=== PATIENT | female | born 1935 | race Caucasian/White ===

== ENCOUNTER 2018-03-10 16:23 | Inpatient (IN) | payer OTHER ==
[~2018-03-10] VITALS: Ht 157.5 cm; Wt 47.6 kg
[~2018-03-10 16:23] MED LIST: LEVO75TA7 PO; LISI10TA5 PO; ROSU10TA PO; WARF4TAB2 PO
[2018-03-10 16:40] VITALS: BP_SYST 146
[2018-03-10 17:49] LABS: HEMATOCRIT 30.9 % (36-48); HEMOGLOBIN 10.3 g/dL (12.0-16.0); MEAN CORPUSCULAR HEMOGLOBIN 32 pg (27-31); MEAN CORPUSCULAR HGB CONC 33 % (32-36); MEAN CORPUSCULAR VOLUME 96 fL (79.0-98.0); PLATELET COUNT (AUTO) 407 K/uL (130-430); RED BLOOD CELL COUNT(AUTO) 3.21 MIL/uL (4.2-6.2); RED CELL DISTRIBUTION WIDTH 13.1 % (9.0-15.0); WHITE BLOOD COUNT (AUTO) 12.8 K/uL (4.8-10.8)
[2018-03-10 17:59] LABS: ANION GAP 7 (5-15); CALCIUM 8.9 mg/dL (8.4-11.0); CHLORIDE 107 mmol/L (98-107); CREATININE 1.22 mg/dL (0.55-1.30); GLUCOSE 113 mg/dL (70-99); POTASSIUM 4.5 mmol/L (3.5-5.1); SODIUM SERUM 139 mmol/L (136-145); UREA NITROGEN, BLOOD 26 mg/dL (8-21)
[2018-03-10 18:03] LABS: ALANINE AMINOTRANSFERASE 24 U/L (12-78); ALBUMIN 3.1 g/dL (3.4-4.8); ASPARTATE AMINOTRANSFERASE 20 U/L (10-37); TOTAL BILIRUBIN 0.2 mg/dL (0.0-1.0)
[2018-03-10 18:25] LABS: BAND % (MANUAL) 1 % (0-6); BASOPHILS % (MANUAL) 0 % (0-2); EOSINOPHILS % (MANUAL) 6 % (0-7); LYMPHOCYTES % (MANUAL) 34 % (20-46); MONOCYTES % (MANUAL) 5 % (0-11)
[2018-03-10] MEDS ORDERED: IPRA3AMP9 INH (19:27)
[2018-03-10] MEDS ORDERED: GUAI100S14 PO (19:29)
[2018-03-10] MEDS ORDERED: BACL10TA PO (19:32)
[2018-03-10] MEDS ORDERED: WARF5TAB2 PO (19:34)
[2018-03-10] MEDS ORDERED: WARF2TAB2 PO (19:37)
[2018-03-10 19:44] LABS: BILIRUBIN,URINE NEGATIVE (NEGATIVE); BLOOD, URINE 3+ (NEGATIVE); CLARITY/URINE CLOUDY (CLEAR); COLOR,URINE YELLOW (YELLOW); GLUCOSE,URINE NEGATIVE (NEGATIVE); KETONES,URINE NEGATIVE (NEGATIVE); LEUKOCYTE ESTERASE ,URINE 2+ (NEGATIVE); NITRITE, URINE NEGATIVE (NEGATIVE); PH,URINE 5.5 (5.0-8.0); PROTEIN URINE 2+ (NEGATIVE); UROBILINOGEN,URINE 0.2 (0.2-1.0)
[2018-03-10 19:49] LABS: BACTERIA,URINE MODERATE /HPF (None Seen); WBC,URINE 20-50 /HPF (0-3)
[2018-03-10] MEDS ORDERED: TRAM50TA92 PO (20:09)
[2018-03-10] MEDS ORDERED: ACET-2165 PO (20:13)
[2018-03-10] MEDS ORDERED: LEVOFLOXACIN 500 MG/D5W 100 ML IV ONE (20:15)
[2018-03-10] MEDS ORDERED: MULT-300 PO (20:15)
[2018-03-10] MEDS ORDERED: FAMO20TA8 PO (20:16)
[2018-03-10] MEDS ORDERED: MAGN400O4 PO (20:17)
[2018-03-10] MEDS ORDERED: SENN8.6T19 PO (20:17)
[2018-03-10] MEDS ORDERED: DULR10 RC (20:18)
[2018-03-10] MEDS ORDERED: NA P118E RC (20:19)
[2018-03-10] MEDS ORDERED: CAT.1 PO (20:20)
[2018-03-10] MEDS ORDERED: DOCU-144 PO (20:23)
[2018-03-10] MEDS ORDERED: LIP10 PO (20:24)
[2018-03-10] MEDS ORDERED: traMADol HCL HCL 50 MG TABLET (ULTRAM) PO PRN (20:45)
[2018-03-10] MEDS ORDERED: cloNIDine HCL 0.1 MG TABLET PO PRN (20:45)
[2018-03-10] MEDS ORDERED: BACLOFEN 10 MG TABLET PO PRN (20:45)
[2018-03-10] MEDS ORDERED: NA PHOS,M-B/NA PHOS,DI-BA 118 ML (FLEET ENEMA) RC PRN (20:45)
[2018-03-10] MEDS ORDERED: ACETAMINOPHEN 325 MG TABLET PO PRN ×2 (20:45)
[2018-03-10] MEDS ORDERED: BISACODYL 10 MG/SUPPOSITORY RC PRN (20:45)
[2018-03-10] MEDS ORDERED: IPRATROPIUM/ALBUTEROL SULFATE 3 ML AMPUL.NEB INH PRN (20:45)
[2018-03-10] MEDS ORDERED: MILK OF MAGNESIA 30 ML UDC PO PRN (20:45)
[2018-03-10] MEDS ORDERED: DOCUSATE SODIUM 100 MG CAPSULE PO PRN (20:45)
[2018-03-10] MEDS ORDERED: guaiFENesin 200 MG/10 ML UDC PO PRN (20:45)
[2018-03-10 21:00] VITALS: BP_SYST 158
[2018-03-10 22:27] VITALS: BP_SYST 158
[2018-03-11] VITALS: BP_SYST 136
[2018-03-11 07:18] LABS: BASOPHILS # (AUTO) 0.1 K/uL (0.0-0.2); BASOPHILS % (AUTO) 0.8 % (0.0-2.0); EOSINOPHILS # (AUTO) 0.4 K/uL (0.0-0.4); EOSINOPHILS % (AUTO) 3.6 % (0.0-4.0); HEMOGLOBIN 9.6 g/dL (12.0-16.0); LYMPHOCYTES % (AUTO) 28.1 % (20.5-51.5); MEAN CORPUSCULAR HEMOGLOBIN 31 pg (27-31); MEAN CORPUSCULAR HGB CONC 32 % (32-36); MEAN CORPUSCULAR VOLUME 96 fL (79.0-98.0); MONOCYTES # (AUTO) 0.9 K/uL (0.0-1.0); MONOCYTES % (AUTO) 7.9 % (1.7-9.3); NEUTROPHILS # (AUTO) 6.4 K/uL (1.8-7.7); NEUTROPHILS % (AUTO) 59.6 % (40.0-70.0); PLATELET COUNT (AUTO) 366 K/uL (130-430); RED BLOOD CELL COUNT(AUTO) 3.11 MIL/uL (4.2-6.2); RED CELL DISTRIBUTION WIDTH 13.4 % (9.0-15.0); WHITE BLOOD COUNT (AUTO) 10.8 K/uL (4.8-10.8)
[2018-03-11 07:33] LABS: PROTHROMBIN TIME 20.2 SECS (9.5-12.5)
[2018-03-11 08:20] VITALS: BP_SYST 148
[2018-03-11] MEDS: MULTIVITS,CA,MINERALS/IRON/FA 1 TABLET PO SCH (08:24)
[2018-03-11] MEDS: LISINOPRIL 10 MG TABLET (PRINIVIL) PO SCH (08:24)
[2018-03-11] MEDS: ATORVASTATIN 10 MG TABLET PO SCH (08:24)
[2018-03-11] MEDS: FAMOTIDINE 20 MG TABLET PO SCH (08:24)
[2018-03-11 08:40] LABS: ALANINE AMINOTRANSFERASE 21 U/L (12-78); ALBUMIN 2.9 g/dL (3.4-4.8); ANION GAP 8 (5-15); ASPARTATE AMINOTRANSFERASE 17 U/L (10-37); CHLORIDE 108 mmol/L (98-107); GLUCOSE 77 mg/dL (70-99); POTASSIUM 5.2 mmol/L (3.5-5.1); SODIUM SERUM 142 mmol/L (136-145); THYROID STIMULATING HORMONE 1.98 uIu/mL (0.34-4.82); TOTAL BILIRUBIN 0.4 mg/dL (0.0-1.0); UREA NITROGEN, BLOOD 22 mg/dL (8-21)
[2018-03-11] MEDS ORDERED: LEVOTHYROXINE SODIUM 0.075 MG TABLET PO SCH (09:00)
[2018-03-11 09:23] LABS: CALCIUM 8.7 mg/dL (8.4-11.0); CREATININE 1.31 mg/dL (0.55-1.30)
[2018-03-11 12:38] VITALS: BP_SYST 132
[2018-03-11] MEDS: 0.45% NACL 1,000 ML IV SCH (15:00)
[2018-03-11 16:46] VITALS: BP_SYST 131
[2018-03-11] MEDS ORDERED: WARFARIN SODIUM 5 MG TABLET PO SCH (18:00)
[2018-03-11] MEDS ORDERED: WARFARIN SODIUM 3 MG TABLET PO ONE (18:00)
[2018-03-11] MEDS ORDERED: WARFARIN SODIUM 4 MG TABLET PO ONE (18:00)
[2018-03-11 20:00] VITALS: BP_SYST 148
[2018-03-11] MEDS: SENNOSIDES 8.6 MG TABLET PO SCH (20:20)
[2018-03-11] MEDS ORDERED: COMMUNICATION ORDER XX ONE (22:15)
[2018-03-12 00:42] VITALS: BP_SYST 123
[2018-03-12] MEDS: 0.45% NACL 1,000 ML IV SCH ×2 (02:30→14:33)
[2018-03-12] MEDS: LEVOTHYROXINE SODIUM 0.075 MG TABLET PO SCH (06:10)
[2018-03-12 06:54] LABS: INR 1.6 (0.8-1.2); PROTHROMBIN TIME 16.7 SECS (9.5-12.5)
[2018-03-12 07:02] LABS: ALANINE AMINOTRANSFERASE 19 U/L (12-78); ALBUMIN 2.6 g/dL (3.4-4.8); ANION GAP 6 (5-15); ASPARTATE AMINOTRANSFERASE 17 U/L (10-37); CALCIUM 8.7 mg/dL (8.4-11.0); CHLORIDE 104 mmol/L (98-107); CREATININE 1.22 mg/dL (0.55-1.30); GLUCOSE 81 mg/dL (70-99); POTASSIUM 4.5 mmol/L (3.5-5.1); SODIUM SERUM 136 mmol/L (136-145); TOTAL BILIRUBIN 0.4 mg/dL (0.0-1.0); UREA NITROGEN, BLOOD 23 mg/dL (8-21)
[2018-03-12 07:08] LABS: BASOPHILS % (AUTO) 0.3 % (0.0-2.0); EOSINOPHILS # (AUTO) 0.7 K/uL (0.0-0.4); EOSINOPHILS % (AUTO) 7.4 % (0.0-4.0); HEMATOCRIT 30.5 % (36-48); HEMOGLOBIN 9.7 g/dL (12.0-16.0); LYMPHOCYTES # (AUTO) 3.4 K/uL (1.0-5.5); LYMPHOCYTES % (AUTO) 34.5 % (20.5-51.5); MEAN CORPUSCULAR HEMOGLOBIN 31 pg (27-31); MEAN CORPUSCULAR HGB CONC 32 % (32-36); MEAN CORPUSCULAR VOLUME 97 fL (79.0-98.0); MONOCYTES # (AUTO) 0.9 K/uL (0.0-1.0); MONOCYTES % (AUTO) 8.9 % (1.7-9.3); NEUTROPHILS % (AUTO) 48.9 % (40.0-70.0); PLATELET COUNT (AUTO) 352 K/uL (130-430); RED BLOOD CELL COUNT(AUTO) 3.16 MIL/uL (4.2-6.2); RED CELL DISTRIBUTION WIDTH 13.3 % (9.0-15.0)
[2018-03-12 08:23] VITALS: BP_SYST 114
[2018-03-12] MEDS: MULTIVITS,CA,MINERALS/IRON/FA 1 TABLET PO SCH (08:59)
[2018-03-12] MEDS: FAMOTIDINE 20 MG TABLET PO SCH (08:59)
[2018-03-12] MEDS: ATORVASTATIN 10 MG TABLET PO SCH (08:59)
[2018-03-12] MEDS: LISINOPRIL 10 MG TABLET (PRINIVIL) PO SCH (09:00)
[2018-03-12] MEDS: LEVOFLOXACIN 250 MG/D5W 50 ML IV SCH (10:33)
[2018-03-12 11:26] VITALS: BP_SYST 124
[2018-03-12] MEDS ORDERED: ONDANSETRON HCL 4 MG/2 ML VIAL IVP PRN (15:45)
[2018-03-12 15:50] VITALS: BP_SYST 110
[2018-03-12] MEDS ORDERED: guaiFENesin ER 600 MG TAB PO ONE (16:15)
[2018-03-12] MEDS ORDERED: CELECOXIB 100 MG CAPSULE PO ONE (16:30)
[2018-03-12 16:54] LABS: TOTAL IRON BIND. CAPACITY 169 ug/dL (250-450)
[2018-03-12] MEDS: WARFARIN SODIUM 7.5 MG TABLET PO SCH (18:05)
[2018-03-12 20:00] VITALS: BP_SYST 143
[2018-03-12] MEDS: IPRATROPIUM/ALBUTEROL SULFATE 3 ML AMPUL.NEB INH SCH (20:00)
[2018-03-12] MEDS: guaiFENesin ER 600 MG TAB PO SCH (21:07)
[2018-03-12] MEDS: SENNOSIDES 8.6 MG TABLET PO SCH (21:07)
[2018-03-13 00:40] VITALS: BP_SYST 124
[2018-03-13] MEDS: IPRATROPIUM/ALBUTEROL SULFATE 3 ML AMPUL.NEB INH SCH ×4 (01:30→19:55)
[2018-03-13] MEDS: 0.45% NACL 1,000 ML IV SCH ×2 (03:17→18:15)
[2018-03-13] MEDS: LEVOTHYROXINE SODIUM 0.075 MG TABLET PO SCH (06:26)
[2018-03-13 08:45] VITALS: BP_SYST 129
[2018-03-13] MEDS: ATORVASTATIN 10 MG TABLET PO SCH (09:35)
[2018-03-13] MEDS: CELECOXIB 100 MG CAPSULE PO SCH (09:35)
[2018-03-13] MEDS: MULTIVITS,CA,MINERALS/IRON/FA 1 TABLET PO SCH (09:36)
[2018-03-13] MEDS: FAMOTIDINE 20 MG TABLET PO SCH (09:36)
[2018-03-13] MEDS: LISINOPRIL 10 MG TABLET (PRINIVIL) PO SCH (09:36)
[2018-03-13] MEDS: guaiFENesin ER 600 MG TAB PO SCH ×2 (09:37→20:12)
[2018-03-13] MEDS: LEVOFLOXACIN 250 MG/D5W 50 ML IV SCH (09:37)
[2018-03-13 09:46] LABS: INR 1.6 (0.8-1.2); PROTHROMBIN TIME 16.1 SECS (9.5-12.5)
[2018-03-13 10:39] VITALS: BP_SYST 129
[2018-03-13] MEDS ORDERED: DOXYCYCLINE HYCLATE 100 MG CAPSULE PO ONE (12:00)
[2018-03-13 12:29] VITALS: BP_SYST 121
[2018-03-13 16:22] VITALS: BP_SYST 139
[2018-03-13] MEDS: WARFARIN SODIUM 7.5 MG TABLET PO SCH (18:17)
[2018-03-13 19:05] VITALS: BP_SYST 147
[2018-03-13] MEDS: SENNOSIDES 8.6 MG TABLET PO SCH (20:12)
[2018-03-14 00:15] VITALS: BP_SYST 138
[2018-03-14] MEDS: IPRATROPIUM/ALBUTEROL SULFATE 3 ML AMPUL.NEB INH SCH ×4 (01:00→19:56)
[2018-03-14] MEDS: 0.45% NACL 1,000 ML IV SCH ×2 (06:04→17:16)
[2018-03-14] MEDS: LEVOTHYROXINE SODIUM 0.075 MG TABLET PO SCH (06:04)
[2018-03-14 08:00] VITALS: BP_SYST 136
[2018-03-14] MEDS: FAMOTIDINE 20 MG TABLET PO SCH (09:01)
[2018-03-14] MEDS: guaiFENesin ER 600 MG TAB PO SCH ×2 (09:01→21:45)
[2018-03-14] MEDS: ATORVASTATIN 10 MG TABLET PO SCH (09:01)
[2018-03-14] MEDS: MULTIVITS,CA,MINERALS/IRON/FA 1 TABLET PO SCH (09:02)
[2018-03-14] MEDS: LEVOFLOXACIN 250 MG/D5W 50 ML IV SCH (09:02)
[2018-03-14] MEDS: CELECOXIB 100 MG CAPSULE PO SCH (09:02)
[2018-03-14] MEDS: LISINOPRIL 10 MG TABLET (PRINIVIL) PO SCH (09:02)
[2018-03-14] MEDS: DOXYCYCLINE HYCLATE 100 MG CAPSULE PO SCH (09:02)
[2018-03-14 09:52] LABS: INR 1.9 (0.8-1.2); PROTHROMBIN TIME 19.3 SECS (9.5-12.5)
[2018-03-14 12:00] VITALS: BP_SYST 152
[2018-03-14 13:46] LABS: ANION GAP 6 (5-15); CALCIUM 8.2 mg/dL (8.4-11.0); CHLORIDE 107 mmol/L (98-107); CREATININE 1.18 mg/dL (0.55-1.30); GLUCOSE 109 mg/dL (70-99); SODIUM SERUM 137 mmol/L (136-145); UREA NITROGEN, BLOOD 22 mg/dL (8-21)
[2018-03-14 13:51] LABS: ALANINE AMINOTRANSFERASE 19 U/L (12-78); ALBUMIN 2.8 g/dL (3.4-4.8); ASPARTATE AMINOTRANSFERASE 18 U/L (10-37); TOTAL BILIRUBIN 0.2 mg/dL (0.0-1.0)
[2018-03-14] MEDS ORDERED: VANCOMYCIN HCL 750 MG/NS 250 ML IV ONE (14:00)
[2018-03-14 15:09] VITALS: BP_SYST 143
[2018-03-14] MEDS: WARFARIN SODIUM 7.5 MG TABLET PO SCH (17:21)
[2018-03-14 20:00] VITALS: BP_SYST 157
[2018-03-14] MEDS: SENNOSIDES 8.6 MG TABLET PO SCH (21:45)
[2018-03-15] VITALS: BP_SYST 141
[2018-03-15] MEDS: IPRATROPIUM/ALBUTEROL SULFATE 3 ML AMPUL.NEB INH SCH ×4 (00:55→19:42)
[2018-03-15] MEDS: LEVOTHYROXINE SODIUM 0.075 MG TABLET PO SCH (06:15)
[2018-03-15] MEDS: 0.45% NACL 1,000 ML IV SCH ×2 (06:15→18:29)
[2018-03-15 07:08] LABS: ALANINE AMINOTRANSFERASE 15 U/L (12-78); ALBUMIN 2.5 g/dL (3.4-4.8); ANION GAP 5 (5-15); ASPARTATE AMINOTRANSFERASE 14 U/L (10-37); CALCIUM 8.3 mg/dL (8.4-11.0); CHLORIDE 109 mmol/L (98-107); CREATININE 1.13 mg/dL (0.55-1.30); GLUCOSE 82 mg/dL (70-99); POTASSIUM 4.3 mmol/L (3.5-5.1); SODIUM SERUM 137 mmol/L (136-145); TOTAL BILIRUBIN 0.3 mg/dL (0.0-1.0); UREA NITROGEN, BLOOD 19 mg/dL (8-21)
[2018-03-15 07:27] LABS: INR 2.1 (0.8-1.2); PROTHROMBIN TIME 21.7 SECS (9.5-12.5)
[2018-03-15] MEDS: CELECOXIB 100 MG CAPSULE PO SCH (08:36)
[2018-03-15] MEDS: LISINOPRIL 10 MG TABLET (PRINIVIL) PO SCH (08:37)
[2018-03-15] MEDS: FAMOTIDINE 20 MG TABLET PO SCH (08:37)
[2018-03-15] MEDS: ATORVASTATIN 10 MG TABLET PO SCH (08:37)
[2018-03-15] MEDS: MULTIVITS,CA,MINERALS/IRON/FA 1 TABLET PO SCH (08:37)
[2018-03-15] MEDS: guaiFENesin ER 600 MG TAB PO SCH ×2 (08:37→22:07)
[2018-03-15] MEDS: DOXYCYCLINE HYCLATE 100 MG CAPSULE PO SCH (08:37)
[2018-03-15 11:30] VITALS: BP_SYST 119
[2018-03-15] MEDS ORDERED: VANCOMYCIN HCL 500 MG in NS 100 ML IV SCH (14:00)
[2018-03-15] MEDS: VANCOMYCIN HCL 750 MG in NS 250 ML IV SCH (14:42)
[2018-03-15 17:03] VITALS: BP_SYST 121
[2018-03-15] MEDS: WARFARIN SODIUM 7.5 MG TABLET PO SCH (18:33)
[2018-03-15 20:00] VITALS: BP_SYST 135
[2018-03-15] MEDS: SENNOSIDES 8.6 MG TABLET PO SCH (22:07)
[2018-03-15 22:59] VITALS: BP_SYST 120
[2018-03-16] VITALS (7 sets, daily range): BP systolic 135–149
[2018-03-16] MEDS: IPRATROPIUM/ALBUTEROL SULFATE 3 ML AMPUL.NEB INH SCH ×4 (01:00→19:26)
[2018-03-16] MEDS: 0.45% NACL 1,000 ML IV SCH ×2 (06:18→18:54)
[2018-03-16 06:24] LABS: INR 2.5 (0.8-1.2); PROTHROMBIN TIME 25.3 SECS (9.5-12.5)
[2018-03-16 06:35] LABS: ALANINE AMINOTRANSFERASE 17 U/L (12-78); ALBUMIN 2.6 g/dL (3.4-4.8); ANION GAP 10 (5-15); ASPARTATE AMINOTRANSFERASE 18 U/L (10-37); CALCIUM 8.2 mg/dL (8.4-11.0); CHLORIDE 109 mmol/L (98-107); CREATININE 1.04 mg/dL (0.55-1.30); GLUCOSE 82 mg/dL (70-99); POTASSIUM 4.9 mmol/L (3.5-5.1); SODIUM SERUM 140 mmol/L (136-145); TOTAL BILIRUBIN 0.3 mg/dL (0.0-1.0); UREA NITROGEN, BLOOD 23 mg/dL (8-21)
[2018-03-16] MEDS: LEVOTHYROXINE SODIUM 0.075 MG TABLET PO SCH (07:07)
[2018-03-16] MEDS: guaiFENesin ER 600 MG TAB PO SCH ×2 (08:47→20:35)
[2018-03-16] MEDS: FAMOTIDINE 20 MG TABLET PO SCH (08:47)
[2018-03-16] MEDS: CELECOXIB 100 MG CAPSULE PO SCH (08:47)
[2018-03-16] MEDS: MULTIVITS,CA,MINERALS/IRON/FA 1 TABLET PO SCH (08:48)
[2018-03-16] MEDS: ATORVASTATIN 10 MG TABLET PO SCH (08:48)
[2018-03-16] MEDS: LISINOPRIL 10 MG TABLET (PRINIVIL) PO SCH (08:48)
[2018-03-16] MEDS: DOXYCYCLINE HYCLATE 100 MG CAPSULE PO SCH (08:49)
[2018-03-16] MEDS: VANCOMYCIN HCL 750 MG in NS 250 ML IV SCH (14:05)
[2018-03-16] MEDS: WARFARIN SODIUM 3 MG TABLET PO SCH (17:21)
[2018-03-16] MEDS: SENNOSIDES 8.6 MG TABLET PO SCH (20:35)
[2018-03-17] MEDS: IPRATROPIUM/ALBUTEROL SULFATE 3 ML AMPUL.NEB INH SCH ×4 (01:00→19:35)
[2018-03-17] MEDS: 0.45% NACL 1,000 ML IV SCH ×2 (06:30→10:26)
[2018-03-17] MEDS: LEVOTHYROXINE SODIUM 0.075 MG TABLET PO SCH (06:35)
[2018-03-17 07:45] VITALS: BP_SYST 140
[2018-03-17] MEDS: MULTIVITS,CA,MINERALS/IRON/FA 1 TABLET PO SCH (08:14)
[2018-03-17] MEDS: LISINOPRIL 10 MG TABLET (PRINIVIL) PO SCH (08:14)
[2018-03-17] MEDS: guaiFENesin ER 600 MG TAB PO SCH ×2 (08:15→19:57)
[2018-03-17] MEDS: ATORVASTATIN 10 MG TABLET PO SCH (08:15)
[2018-03-17] MEDS: FAMOTIDINE 20 MG TABLET PO SCH (08:15)
[2018-03-17] MEDS: CELECOXIB 100 MG CAPSULE PO SCH (08:15)
[2018-03-17] MEDS: DOXYCYCLINE HYCLATE 100 MG CAPSULE PO SCH (08:15)
[2018-03-17 12:17] VITALS: BP_SYST 118
[2018-03-17] MEDS: VANCOMYCIN HCL 750 MG in NS 250 ML IV SCH (13:54)
[2018-03-17 16:00] VITALS: BP_SYST 114
[2018-03-17] MEDS: WARFARIN SODIUM 3 MG TABLET PO SCH (18:22)
[2018-03-17] MEDS: SENNOSIDES 8.6 MG TABLET PO SCH (19:57)
[2018-03-17 20:12] VITALS: BP_SYST 145
[2018-03-18 11:08] LABS: FOLATE (FOLIC ACID) 9.8 ng/mL (>3.0)
== END 2018-03-17 22:10 | DRG 690 ==
LOC: SED 16:23 → STU 20:24 → SMU 03-12 15:55
PROVIDERS: ADMIT Internal Medicine; ATTEND Internal Medicine
DX: N39.0 Urinary tract infection, site not specified (principal); E44.0 Moderate protein-calorie malnutrition; I69.359 Hemiplegia and hemiparesis following cerebral infarction affecting unspecified side; Z68.1 Body mass index [BMI] 19.9 or less, adult; B95.62 Methicillin resistant Staphylococcus aureus infection as the cause of diseases classified elsewhere; E03.9 Hypothyroidism, unspecified; E78.5 Hyperlipidemia, unspecified; E86.0 Dehydration; E87.6 Hypokalemia; F31.9 Bipolar disorder, unspecified; G62.9 Polyneuropathy, unspecified; I10 Essential (primary) hypertension; J20.9 Acute bronchitis, unspecified; G89.29 Other chronic pain; M79.604 Pain in right leg; M19.90 Unspecified osteoarthritis, unspecified site; R54 Age-related physical debility; M79.605 Pain in left leg; R31.9 Hematuria, unspecified; D72.829 Elevated white blood cell count, unspecified; Z79.01 Long term (current) use of anticoagulants; Z86.718 Personal history of other venous thrombosis and embolism; I69.339 Monoplegia of upper limb following cerebral infarction affecting unspecified side; Z79.899 Other long term (current) drug therapy; Z79.1 Long term (current) use of non-steroidal anti-inflammatories (NSAID)
CPT/HCPCS: 36415; 71045; 80053; 80202-TC; 81000-TC; 82607; 82746; 83540-TC; 83550-TC; 83605; 83880; 84443-TC; 84484; 84550-TC; 85007; 85025; 85027; 85610-TC; 87081; 87086; 87186-TC; 93005; 93970; 94010; 94640; 94760; 97110-GP; 97530-GP; 99285; J1956; J3370; J7050; J7620

== ENCOUNTER 2019-04-03 16:52 | Emergency (ER) | payer OTHER ==
[~2019-04-03] VITALS: Ht 170.2 cm; Wt 72.6 kg
[2019-04-03 16:52] VITALS: BP_SYST 131
[~2019-04-03 16:52] MED LIST changes: +ACET-2165 PO; +BACL10TA PO; +CAT.1 PO; +DOCU-144 PO; +DULR10 RC; +FAMO20TA8 PO; +GUAI100S14 PO; +IPRA3AMP9 INH; +LIP10 PO; +MOM PO; +MULT-300 PO; +NA P118E RC; -ROSU10TA PO; +SENN8.6T19 PO; +TRAM50TA92 PO; +WARF2TAB2 PO; -WARF4TAB2 PO; +WARF5TAB2 PO
[2019-04-03] MEDS ORDERED: LIDOCAINE/EPI 1% 1:100000 20 ML VIAL INJ ONE (17:15)
[2019-04-03 17:37] LABS: BASOPHILS % (AUTO) 0.4 % (0.0-2.0); EOSINOPHILS # (AUTO) 0.1 K/uL (0.0-0.4); EOSINOPHILS % (AUTO) 1.5 % (0.0-4.0); HEMATOCRIT 35.1 % (36-48); HEMOGLOBIN 11.4 g/dL (12.0-16.0); LYMPHOCYTES # (AUTO) 2.9 K/uL (1.0-5.5); LYMPHOCYTES % (AUTO) 33.2 % (20.5-51.5); MEAN CORPUSCULAR HEMOGLOBIN 32 pg (27-31); MEAN CORPUSCULAR HGB CONC 33 % (32-36); MEAN CORPUSCULAR VOLUME 98 fL (79.0-98.0); MONOCYTES # (AUTO) 0.7 K/uL (0.0-1.0); MONOCYTES % (AUTO) 8.1 % (1.7-9.3); NEUTROPHILS % (AUTO) 56.8 % (40.0-70.0); PLATELET COUNT (AUTO) 303 K/uL (130-430); RED BLOOD CELL COUNT(AUTO) 3.58 MIL/uL (4.2-6.2); RED CELL DISTRIBUTION WIDTH 13.5 % (9.0-15.0); WHITE BLOOD COUNT (AUTO) 8.8 K/uL (4.8-10.8)
[2019-04-03 17:53] LABS: ANION GAP 9 (5-15); CALCIUM 9.1 mg/dL (8.4-11.0); CHLORIDE 101 mmol/L (98-107); CREATININE 1.26 mg/dL (0.55-1.30); GLUCOSE 104 mg/dL (70-99); SODIUM SERUM 134 mmol/L (136-145); UREA NITROGEN, BLOOD 25 mg/dL (8-21)
[2019-04-03 17:58] LABS: INR 1.6 (0.8-1.2); PROTHROMBIN TIME 16.1 SECS (9.5-12.5)
[2019-04-03] MEDS ORDERED: BACITRACIN 1 GM OINT TP ONE (18:30)
[2019-04-03 20:34] VITALS: BP_SYST 127
== END 2019-04-03 20:34 | disposition home or self-care (01) ==
LOC: SED 16:52
DX: S01.81XA Laceration without foreign body of other part of head, initial encounter (principal); I10 Essential (primary) hypertension; E07.9 Disorder of thyroid, unspecified; Z86.73 Personal history of transient ischemic attack (TIA), and cerebral infarction without residual deficits; Z79.01 Long term (current) use of anticoagulants; Z79.899 Other long term (current) drug therapy; W06.XXXA Fall from bed, initial encounter; Y93.89 Activity, other specified; Y92.89 Other specified places as the place of occurrence of the external cause; Y99.8 Other external cause status
CPT/HCPCS: 36415; 70450-TC; 72125-TC; 80048; 85025; 85610-TC; 85730-TC; 93005; 99284

== ENCOUNTER 2019-04-16 00:07 | Inpatient (IN) | payer OTHER ==
[~2019-04-16] VITALS: Ht 162.6 cm; Wt 58.1 kg
--- NOTE | 2019-04-16 00:12 | NUR ---
Placed in room 08 . Placed on shelter monitor, blood pressure machine and pulse oximeter. To gown for exam. Side rails up.
--- NOTE | 2019-04-16 00:13 | NUR ---
Pt brought by ACLS, Alert to name , pt presents to ER for Altered mental status, poor oral intake, combative, hallucinating, pt respirations even and unlabored, cap refill <3, VSS, no N/V noted, weakness on L side of body due Hx of CVA, pt lives with daughter and grandaughter at home, mental health staff member arrived with patient for further evaluation.
[2019-04-16 00:23] VITALS: BP_SYST 116
[2019-04-16] MEDS ORDERED: LORazepam 2 MG/ML VIAL (FOR ER USE) IM ONE (00:30)
--- NOTE | 2019-04-16 00:30 | NUR ---
Dr Vega at bedside examining patient.
--- NOTE | 2019-04-16 00:35 | NUR ---
Pt combative at this time , states she does not want to be touch, hallucinating pt states "I am in [place] and somebody is going to hurt me", pt VSS , respirations even and unlabored, Dr Vega notified. order for Ativan received.
--- NOTE | 2019-04-16 00:55 | NUR ---
Ativan 2 mg administered as ordered, well tolerated.
--- NOTE | 2019-04-16 01:15 | NUR ---
Pt sleeping at this time after Ativan administration, pt allowing to do procedures at this time, notified. physical restrains not needed at this time.
--- NOTE | 2019-04-16 01:30 | NUR ---
16 # FR In and Out catheter with use of sterile technique. Immediate return of 150 ml urine noted. Urine sample collected and sent to lab. Pt tolerated procedure . Patient unable to toilet self.
[2019-04-16 01:51] LABS: BASOPHILS # (AUTO) 0.1 K/uL (0.0-0.2); BASOPHILS % (AUTO) 0.8 % (0.0-2.0); EOSINOPHILS # (AUTO) 0.2 K/uL (0.0-0.4); EOSINOPHILS % (AUTO) 2.5 % (0.0-4.0); HEMATOCRIT 36.1 % (36-48); HEMOGLOBIN 11.8 g/dL (12.0-16.0); LYMPHOCYTES # (AUTO) 2.5 K/uL (1.0-5.5); MEAN CORPUSCULAR HEMOGLOBIN 32 pg (27-31); MEAN CORPUSCULAR HGB CONC 33 % (32-36); MEAN CORPUSCULAR VOLUME 99 fL (79.0-98.0); MONOCYTES # (AUTO) 0.5 K/uL (0.0-1.0); MONOCYTES % (AUTO) 7.4 % (1.7-9.3); NEUTROPHILS % (AUTO) 55.3 % (40.0-70.0); PLATELET COUNT (AUTO) 338 K/uL (130-430); RED BLOOD CELL COUNT(AUTO) 3.66 MIL/uL (4.2-6.2); RED CELL DISTRIBUTION WIDTH 13.5 % (9.0-15.0); WHITE BLOOD COUNT (AUTO) 7.2 K/uL (4.8-10.8)
[2019-04-16 02:03] LABS: INR 2.8 (0.8-1.2)
[2019-04-16] MEDS ORDERED: AMLO5TAB4 PO (02:07)
[2019-04-16] MEDS ORDERED: SYN75 PO (02:07)
[2019-04-16] MEDS ORDERED: FURO20TA4 PO (02:07)
[2019-04-16] MEDS ORDERED: POTA10TA15 PO (02:07)
[2019-04-16] MEDS ORDERED: NACL 0.9% 1,000 ML IV ONE (02:15)
[2019-04-16 02:21] LABS: ANION GAP 11 (5-15); CHLORIDE 105 mmol/L (98-107); CREATININE 1.34 mg/dL (0.55-1.30); GLUCOSE 97 mg/dL (70-99); POTASSIUM 3.7 mmol/L (3.5-5.1); SODIUM SERUM 140 mmol/L (136-145); UREA NITROGEN, BLOOD 34 mg/dL (8-21)
--- NOTE | 2019-04-16 02:26 | NUR ---
Medication reconciliation completed with information provided by patient /bottles brought by paramedics from home. Any prior medication reconciliation on file was reviewed and corrected.
--- NOTE | 2019-04-16 02:26 | NUR ---
Pt sleeping at this time, VS WNL, respirations even and unlabored.
[2019-04-16 02:36] LABS: ALANINE AMINOTRANSFERASE 21 U/L (12-78); ALBUMIN 3.3 g/dL (3.4-4.8); ASPARTATE AMINOTRANSFERASE 32 U/L (10-37); TOTAL BILIRUBIN 0.4 mg/dL (0.0-1.0)
[2019-04-16 02:44] LABS: ACETAMINOPHEN < 1 ug/mL (1-30); ALCOHOL, BLOOD < 3 mg/dL (<10)
[2019-04-16 02:49] LABS: BILIRUBIN,URINE NEGATIVE (NEGATIVE); BLOOD, URINE 2+ (NEGATIVE); CLARITY/URINE CLEAR (CLEAR); COLOR,URINE YELLOW (YELLOW); GLUCOSE,URINE NEGATIVE (NEGATIVE); KETONES,URINE 1+ (NEGATIVE); LEUKOCYTE ESTERASE ,URINE 1+ (NEGATIVE); NITRITE, URINE POSITIVE (NEGATIVE); PROTEIN URINE 1+ (NEGATIVE)
--- NOTE | 2019-04-16 02:50 | NUR ---
Report given to Leonardo MENON.
[2019-04-16 02:55] LABS: BACTERIA,URINE MANY /HPF (None Seen); MUCUS,URINE 2+ /LPF (None Seen); WBC,URINE >100 /HPF (0-3); YEAST,URINE Moderate /HPF (None Seen)
[2019-04-16] MEDS ORDERED: LEVOFLOXACIN 500 MG/D5W 100 ML IV ONE (03:00)
[2019-04-16 03:17] LABS: BARBITURATE, URINE NEGATIVE (NEG <=200); BENZODIAZEPINE, URINE NEGATIVE (NEG <=150); CANNABINOID, URINE NEGATIVE (NEG <=50); COCAINE, URINE NEGATIVE (NEG <=150); METHAMPHETAMINES SCREEN,URINE NEGATIVE (NEG <=500); OPIATE, URINE NEGATIVE (NEG <=100); PHENCYCLIDINE SCREEN,URINE NEGATIVE (NEG <=25); URINE AMPHETAMINE NEGATIVE (NEG <=500); URINE METHADONE NEGATIVE (NEG <=200)
[2019-04-16 03:18] LABS: UR TRICYCLIC ANTIDEPRESSANTS NEGATIVE (NEG <=300); URINE OXYCODONE SCREEN NEGATIVE (NEG <=100); URINE PROPOXYPHENE SCREEN NEGATIVE (NEG <=300)
--- NOTE | 2019-04-16 03:47 | NUR ---
Patient will be admitted to care of Dr. Hu. Admitted to MST unit. Will call for bed. Belongings list completed. Summary report printed. Report will be given at bedside.
--- NOTE | 2019-04-16 04:00 | NUR ---
Called [facility] for bed, no bed available at this time. Will cont to monitor pt.
--- NOTE | 2019-04-16 04:22 | NUR ---
CONSULTATION CALLED/PAGED Reason for Consultation: ALOC Was consult called? Yes Person who was notified: Roxanne Consulting Physician: Dr. Flores / Dr. Huerta (On-Call Physician) Collateral Specialist Phone #: Ordering Physician: Dr. Hu
--- NOTE | 2019-04-16 04:26 | NUR ---
CONSULTATION CALLED/PAGED Reason for Consultation: ALOC Was consult called? Yes Person who was notified: Roxanne Consulting Physician: Dr. Kitchen Machine Shop Worker Phone #: Ordering Physician: Dr. Hu
--- NOTE | 2019-04-16 04:30 | NUR ---
Pt will go to [facility] room 121.
[2019-04-16 04:55] VITALS: BP_SYST 125
--- NOTE | 2019-04-16 04:55 | NUR ---
ADMISSION NOTE Received patient from ER via agustín, received report from LYNSEY HUGHES. Patient admitted with diagnosis of ALOC. Patient oriented to hospital routine, call light, toileting and safety-patient verbalized understanding.
--- NOTE | 2019-04-16 04:55 | NUR ---
Transfer to [facility] via ACLS protocol. Licensed nurse present. IV present no signs or symptoms of infiltration.
--- NOTE | 2019-04-16 05:28 | NUR ---
RN ROUNDS Patient asleep but easily arousable, on room air, vital signs stable, placed on tele monitor, sinus rhythm, iv line to right hand intact and patent, saline locked, patient belongings list completed, repositioned for comfort, safety measures in place, bed alarm on, will monitor.
[2019-04-16] MEDS ORDERED: cefTRIAXone 1 GM VIAL ONE (05:37)
[2019-04-16] MEDS: cefTRIAXone 1 GM IVPB PREMIX 50 ML IV SCH (06:23)
--- NOTE | 2019-04-16 06:28 | NUR ---
RN ROUNDS Patient continues to sleep, respirations even and unlabored, remains on room air, IV line intact and patent, due antibiotics administered, fall and safety measures maintained, bed alarm on, will continue to monitor until report given to am nurse.
--- NOTE | 2019-04-16 07:20 | NUR ---
opening note patient is resting in bed, assessment completed, educated studio operations manager light system and plan of care, patient is drowsy breathing easy and nonlabored and snoring, attempted to arose patient but she kept her eyes closed, IV dressing intact, fall/safety precautions in place.
[2019-04-16 08:00] VITALS: BP_SYST 126
--- NOTE | 2019-04-16 09:20 | NUR ---
Dr Flores consult came to see patient, back had unclear speech, MD will put in new orders, patient has no signs of distress, fall/safety precautions in place.
[2019-04-16] MEDS: NACL 0.9% 1,000 ML IV SCH ×3 (09:52→22:29)
--- NOTE | 2019-04-16 11:25 | NUR ---
rounds patient resting in bed, eyes closed breathing easy and nonlabored, no needs addressed at this time, fall/safety precautions in place, IV fluids running.
[2019-04-16] MEDS ORDERED: cloNIDine HCL 0.1 MG TABLET PO PRN (12:15)
[2019-04-16 12:59] VITALS: BP_SYST 114
--- NOTE | 2019-04-16 13:10 | NUR ---
rounds patient resting in bed, eyes closed breathing easy and nonlabored, no needs addressed at this time, fall/safety precautions in place, IV fluids running.
--- NOTE | 2019-04-16 15:00 | NUR ---
patient is agitated patient is awake and attempted to pull IV tube out, disconnected her from the primary fluids because patient kept attempting to pull it out.
[2019-04-16] MEDS ORDERED: LORazepam 2 MG/ML VIAL IVP PRN (16:30)
[2019-04-16] MEDS ORDERED: QUEtiapine FUMARATE 25 MG TABLET PO ONE (16:30)
[2019-04-16 16:56] VITALS: BP_SYST 157
--- NOTE | 2019-04-16 16:58 | NUR ---
patient is agitated, Dr Hu was paged in regards to patient being agitated, pulling out IV and taking off heart monitor, patient swung her arms and legs at me and the TEACHER ASST, got new orders from Dr Hu, charge nurse aware.
--- NOTE | 2019-04-16 18:46 | NUR ---
closing note patient resting in bed, eyes closed breathing easy and nonlabored, no needs addressed at this time, fall/safety precautions in place, IV fluids running, patient on soft wrist restraints due to being combative and pulling IV lines and heart monitor off, will endorse report to noc shift nurse to continue with care, patient is getting an MRI of the head done tomorrow and family needs to be called to do the questionnaire form.
--- NOTE | 2019-04-16 19:31 | NUR ---
Opening Note Received patient awake, AO2, resting in bed. No sign of distress noted, non-labored breathing on RA. Bilat wrist restraints on. NS ic infusing via IV on YT. Bed is locked to lowest position, bed alarm on, side rails up 4x, call light w/in reach. Updated board.
[2019-04-16 20:00] VITALS: BP_SYST 128
[2019-04-17 00:30] VITALS: BP_SYST 140
--- NOTE | 2019-04-17 02:35 | NUR ---
Rounds Patient is resting in bed and presently awake. Non-labored breathing, no sign of distress. Restraint released and patient immediately reaches for my fingers and she has a very strong electrical linesworker. She is talking and is out of reality. Safety precautions maintained, call light w/in reach.
--- NOTE | 2019-04-17 04:18 | NUR ---
Rounds Patient is resting w/ eyes closed. Symmetrical rise and fall of chest. Non-labored breathing. Restraint released and patient repositioned. She put slight resistance, though she was not aggressive or combative. Safety precautions maintained, call light w/in reach.
[2019-04-17] MEDS: LEVOTHYROXINE SODIUM 0.075 MG TABLET PO SCH ×2 (06:30→06:36)
[2019-04-17] MEDS: NACL 0.9% 1,000 ML IV SCH ×2 (06:30→15:09)
[2019-04-17] MEDS: cefTRIAXone 1 GM IVPB PREMIX 50 ML IV SCH (06:30)
--- NOTE | 2019-04-17 07:05 | NUR ---
Nutrition Update Itz Scale 16 noted. Pt admitted for ALOC Diet: Cardiac Low CHOL Low Fat 2gm Na BMI: 22 kg/m2 RD to follow per nutrition care standards.
--- NOTE | 2019-04-17 08:02 | NUR ---
Rn opening note Report was endorsed by night nurse. Patient is awake and alert sitting in bed no signs of any distress,breathing is equal and non labored. Patient and family educated hotel operation manager light for assistance. Patient is being transferred [facility]. Spoke with Dr. Sadler relayed lab results. no further orders given. Patient has been NPO since 0000 04/17/19 will continue to monitor.
[2019-04-17 08:20] VITALS: BP_SYST 158
--- NOTE | 2019-04-17 08:30 | NUR ---
restraints Patients restraints were removed MD is aware. Patient is able to feed herself. Patient is confused on were she is at unable to say who she is and why she is here. Patient educated shipbuilding draftsperson light but unable to understand. Patients call light is with her. Patient is close to nurses station. patient denies pain at this time. Patient has no other needs at this time. will continue to monitor.
--- NOTE | 2019-04-17 10:30 | NUR ---
rn rounding Patient is awake and confused, no signs of any acute distress,breathing is equal and non labored. Patient denies any pain at this time.Patient oriented back to reality but is still confused at this time. Patient has no other needs at this time. will continue to monitor. Patient is close to nurses station.
[2019-04-17 12:00] VITALS: BP_SYST 142
--- NOTE | 2019-04-17 12:41 | NUR ---
PHYSICAL THERAPY PATIENT IS CONFUSED AND RESISTIVE WITH ALL COMMANDS. PT HAS DECREASE OVERALL SAFETY AWARENESS. PT DECLINES TREATMENT AT THIS TIME WITH UNSPEC REASON. ATTEMPTED TO EDUCATE PATIENT WITH BENEFITS OF TREATMENT BUT UNABLE TO ENCOURAGE. PATIENT IS ALSO AGGITATED AND INTERMITTENTLY COMBATIVE. UNABLE TO SEE PATIENT AT THIS TIME. WILL ATTEMPT NEXT VISIT. NURSING AWARE.
[2019-04-17] MEDS ORDERED: BISACODYL 10 MG/SUPPOSITORY RC ONE (13:30)
[2019-04-17] MEDS ORDERED: BISACODYL 10 MG/SUPPOSITORY RC PRN (13:30)
--- NOTE | 2019-04-17 13:40 | NUR ---
Spoke with Dr. Hu made aware of culture results. Tried to obtain history for MRI checklist, patient family is unsure on history states they know she had surgery on her ankle and had some sort of filter placed in her leg. Patient's daughter states her mom wound not let them know of all the history. informed Dr. Hu that not safe to do per MD ok to cancel. Patient is awake and alert laying in bed no signs of any distress, breathing is equal and non labored. Patient is close to nurses station. Patient is very confused tried to reorient back to reality but is still very confused. Patient is close to nurses station. will continue to monitor.
[2019-04-17] MEDS ORDERED: PANTOPRAZOLE SODIUM 40 MG/VIAL (PROTONIX) IVP ONE (13:45)
[2019-04-17] MEDS ORDERED: METOCLOPRAMIDE HCL 10 MG/2 ML VIAL IVP PRN (13:45)
--- NOTE | 2019-04-17 14:49 | NUR ---
CONSULTATION CALLED FOR Bernadette CRENSHAW FOR CONSULT OF SEPSIS ORDER BY DR MONTANA SPOKE WITH MARSHA
--- NOTE | 2019-04-17 15:09 | NUR ---
incontinence care Provided to patient , she is non complaint with Telemonitor. Lab is here to draw blood cultures. Patient is very confused tried to reorient but is still confused. Patient is close to nurses station. All safety precautions in place. Call light is with patient. will continue to monitor.
[2019-04-17 15:32] LABS: BASOPHILS # (AUTO) 0.1 K/uL (0.0-0.2); BASOPHILS % (AUTO) 0.6 % (0.0-2.0); EOSINOPHILS # (AUTO) 0.3 K/uL (0.0-0.4); EOSINOPHILS % (AUTO) 2.7 % (0.0-4.0); HEMATOCRIT 35.8 % (36-48); HEMOGLOBIN 11.5 g/dL (12.0-16.0); LYMPHOCYTES # (AUTO) 2.7 K/uL (1.0-5.5); LYMPHOCYTES % (AUTO) 27.1 % (20.5-51.5); MEAN CORPUSCULAR HEMOGLOBIN 32 pg (27-31); MEAN CORPUSCULAR HGB CONC 32 % (32-36); MEAN CORPUSCULAR VOLUME 99 fL (79.0-98.0); MONOCYTES # (AUTO) 0.7 K/uL (0.0-1.0); MONOCYTES % (AUTO) 7.4 % (1.7-9.3); NEUTROPHILS # (AUTO) 6.2 K/uL (1.8-7.7); NEUTROPHILS % (AUTO) 62.2 % (40.0-70.0); PLATELET COUNT (AUTO) 372 K/uL (130-430); RED BLOOD CELL COUNT(AUTO) 3.61 MIL/uL (4.2-6.2); RED CELL DISTRIBUTION WIDTH 13.2 % (9.0-15.0)
[2019-04-17 16:00] LABS: PROTHROMBIN TIME 20.2 SECS (9.5-12.5)
[2019-04-17] MEDS ORDERED: VANCOMYCIN HCL 1,500 MG in NS 250 ML IV ONE (16:00)
[2019-04-17 16:09] LABS: ALANINE AMINOTRANSFERASE 20 U/L (12-78); ALBUMIN 3.3 g/dL (3.4-4.8); ANION GAP 6 (5-15); ASPARTATE AMINOTRANSFERASE 28 U/L (10-37); CALCIUM 8.7 mg/dL (8.4-11.0); CHLORIDE 110 mmol/L (98-107); CREATININE 0.86 mg/dL (0.55-1.30); FREE T4 (FREE THYROXINE) 0.8 ng/dL (0.6-1.6); GLUCOSE 99 mg/dL (70-99); POTASSIUM 4.1 mmol/L (3.5-5.1); SODIUM SERUM 142 mmol/L (136-145); THYROID STIMULATING HORMONE 5.16 uIu/mL (0.34-4.82); TOTAL BILIRUBIN 0.3 mg/dL (0.0-1.0); UREA NITROGEN, BLOOD 16 mg/dL (8-21)
--- NOTE | 2019-04-17 16:30 | NUR ---
IV site Patient removed IV site, refusing to have new IV site obtained. Patient is confused tried to reorient but is still confused will continue to monitor. Patient is close to nurses station. Dr. major states he will be at the hospital in 5 minutes. Patient is also refusing telemonitor at this time.
[2019-04-17 16:56] VITALS: BP_SYST 123
--- NOTE | 2019-04-17 17:37 | NUR ---
Dr. Hu Made aware that IV was pulled out, order for midline placed, will note be able to be obtained until 04/18/19. ok to downgrade down to med surg. Patient is awake and alert but is being non complaint. Patient has no other needs at this time. will continue to monitor.
[2019-04-17] MEDS: QUEtiapine FUMARATE 25 MG TABLET PO SCH (17:54)
--- NOTE | 2019-04-17 18:25 | NUR ---
rn closing note Report to be endorsed to night nurse. Per Dr. MONTANA, patient is non compliant with IV site, Order received for Seroquel PO.Per Dr. Montana try to start an iv in a few hours, ok to give Vancomycin at 2100 after iv site is obtained by night nurse. Patient has all safety precautions in place. Spoke with pharmacy to confirm order. Tried to reorient patient but she is still confused. Patient show no signs of any distress,breathing is equal and non lbaored. Patient is close to nurses station. Refusing to eat dinner, only drank her cranberry juice. No other needs at this time . will continue to monitor.
[2019-04-17 19:00] VITALS: BP_SYST 144
--- NOTE | 2019-04-17 22:43 | NUR ---
PATIENT RECIEVED WITH NO IV ACCESS, CHARGE NURSE TRIED TO REINSERT ONE BUT FAILED,WILL ASK FOR ASSISTANCE FROM ANOTHER RN,
[2019-04-18 00:22] VITALS: BP_SYST 144
--- NOTE | 2019-04-18 00:28 | NUR ---
IV CANNULA INSERTED TO THE RIGHT FOREARM AND IVF RESUMED
--- NOTE | 2019-04-18 02:19 | NUR ---
Bernadette Robles at the bedside.
--- NOTE | 2019-04-18 02:41 | NUR ---
PATIENT ATTEMPTED TPO GET OUT OF BED 3 X. LORAZEPAM DOSE PREPARED TO BE GIVEN BUT PATIENT SLEPT THERAFTER, LORAZEPAM DOSE WASTED, IVF ON FLOW
[2019-04-18] MEDS: NACL 0.9% 1,000 ML IV SCH ×2 (02:44→08:27)
[2019-04-18 06:16] LABS: BASOPHILS # (AUTO) 0.1 K/uL (0.0-0.2); BASOPHILS % (AUTO) 0.7 % (0.0-2.0); EOSINOPHILS # (AUTO) 0.2 K/uL (0.0-0.4); HEMATOCRIT 30.4 % (36-48); HEMOGLOBIN 9.9 g/dL (12.0-16.0); LYMPHOCYTES # (AUTO) 2.7 K/uL (1.0-5.5); LYMPHOCYTES % (AUTO) 32.3 % (20.5-51.5); MEAN CORPUSCULAR HEMOGLOBIN 32 pg (27-31); MEAN CORPUSCULAR HGB CONC 33 % (32-36); MEAN CORPUSCULAR VOLUME 97 fL (79.0-98.0); MONOCYTES # (AUTO) 0.7 K/uL (0.0-1.0); MONOCYTES % (AUTO) 8.4 % (1.7-9.3); NEUTROPHILS # (AUTO) 4.7 K/uL (1.8-7.7); NEUTROPHILS % (AUTO) 56.6 % (40.0-70.0); PLATELET COUNT (AUTO) 312 K/uL (130-430); RED BLOOD CELL COUNT(AUTO) 3.12 MIL/uL (4.2-6.2); RED CELL DISTRIBUTION WIDTH 13.2 % (9.0-15.0); WHITE BLOOD COUNT (AUTO) 8.4 K/uL (4.8-10.8)
[2019-04-18 06:36] LABS: ALANINE AMINOTRANSFERASE 16 U/L (12-78); ALBUMIN 2.6 g/dL (3.4-4.8); ANION GAP 5 (5-15); ASPARTATE AMINOTRANSFERASE 24 U/L (10-37); CALCIUM 8.2 mg/dL (8.4-11.0); CHLORIDE 112 mmol/L (98-107); CREATININE 0.82 mg/dL (0.55-1.30); GLUCOSE 81 mg/dL (70-99); POTASSIUM 3.7 mmol/L (3.5-5.1); SODIUM SERUM 142 mmol/L (136-145); TOTAL BILIRUBIN 0.6 mg/dL (0.0-1.0); UREA NITROGEN, BLOOD 8 mg/dL (8-21)
[2019-04-18] MEDS: cefTRIAXone 1 GM IVPB PREMIX 50 ML IV SCH (06:57)
--- NOTE | 2019-04-18 07:20 | NUR ---
Opening Note received bedside SBAR report from shift commander RN, patient resting in bed, no acute distress noted, respirations even and unlabored on room air, room close to nurses station, educated patient on use of call light and asked to call for assistance, patient verbalized understanding, call light in reach, bed in low and locked position, bed alarm on.
[2019-04-18] MEDS: LEVOTHYROXINE SODIUM 0.075 MG TABLET PO SCH (07:29)
[2019-04-18 08:00] VITALS: BP_SYST 139
[2019-04-18] MEDS: PANTOPRAZOLE SODIUM 40 MG/VIAL (PROTONIX) IVP SCH (08:19)
--- NOTE | 2019-04-18 09:55 | NUR ---
Physical therapy physical therapy at bedside working with patient, patient tolerating well, no acute distress noted.
--- NOTE | 2019-04-18 12:09 | NUR ---
RN Rounds patient resting in bed, respirations even and unlabored on room air, patient denies any pain, no acute distress noted, no additional needs at this time.
[2019-04-18 12:40] VITALS: BP_SYST 130
[2019-04-18] MEDS: LR 1,000 ML IV SCH (13:58)
--- NOTE | 2019-04-18 14:18 | NUR ---
RN Rounds patient resting in bed, respirations even and unlabored, patient denies any pain, assisted patient to reposition, tolerated well, no additional needs at this time.
[2019-04-18 15:06] LABS: FOLATE (FOLIC ACID) 15.3 ng/mL (>3.0)
[2019-04-18] MEDS ORDERED: Bisacodyl Suppository RC (15:29)
[2019-04-18] MEDS ORDERED: SER25 PO (15:29)
[2019-04-18] MEDS ORDERED: CEPH250C PO (15:29)
[2019-04-18] MEDS ORDERED: Vancomycin Per Pharmacy XX (15:29)
[2019-04-18] MEDS ORDERED: LACT0.5T PO (15:31)
[2019-04-18] MEDS ORDERED: VANCOMYCIN HCL 750 MG/NS 250 ML IV SCH ×2 (16:00→21:00)
[2019-04-18 16:23] VITALS: BP_SYST 126
--- NOTE | 2019-04-18 16:41 | NUR ---
Incontinent patient incontinent of bladder, patient cleaned and assisted to reposition, patient tolerated well.
[2019-04-18] MEDS: QUEtiapine FUMARATE 25 MG TABLET PO SCH (17:28)
--- NOTE | 2019-04-18 18:17 | NUR ---
RN Rounds patient sitting up in bed eating dinner, tolerating well, patient denies any nausea, no acute distress noted.
--- NOTE | 2019-04-18 19:21 | NUR ---
Closing Note bedside SBAR report given to receiving RN, patient resting in bed, no acute distress noted, respirations even and unlabored on room air, room close to nurses station, educated patient on use of call light and asked to call for assistance, patient verbalized understanding, call light in reach, bed in low and locked position, bed alarm on, care endorsed to production supervisor off shift RN.
[2019-04-18 20:00] VITALS: BP_SYST 136
--- NOTE | 2019-04-18 20:00 | NUR ---
Initial note: Received report from bozena RN. Patient is awake in bed, no acute distress. Alert and oriented to name and place only. Tolerates room air. IV fluids infusing to right forearm IV site, site is patent and benign. Call light with patient. Safety, fall precautions in place. Will continue with plan of care.
--- NOTE | 2019-04-18 23:11 | NUR ---
Rounds: Patient is asleep, no acute distress noted. IV fluids infusing well to right forearm IV site, no infiltration noted. Tolerating room air, respirations even and unlabored. Call light with patient. Will continue to monitor.
--- NOTE | 2019-04-19 00:46 | NUR ---
CONSULTATION PAGED/CALLED Reason for Consultation: psychosis Person Who was Notified: rosalba Consulting Physician: rafaela Enrique Specialty: Ordering Physician: pedrito Addendum: 04/19/19 at 0050 by Tabitha Guzman CNA faxed faced sheet
[2019-04-19 01:18] VITALS: BP_SYST 142
--- NOTE | 2019-04-19 02:22 | NUR ---
Rounds: Patient is resting in bed, does not show any acute distress. Even, unlabored breathing on room air. IV fluids infusing to right forearm, site is patent and benign. Call light with patient. Will continue monitoring.
--- NOTE | 2019-04-19 04:24 | NUR ---
Rounds: Patient is sleeping in bed, no acute distress noted. Respirations are even and unlabored on room air. IV fluids infusing as ordered. Call light is with patient. Will continue to monitor.
[2019-04-19] MEDS: cefTRIAXone 1 GM IVPB PREMIX 50 ML IV SCH (06:24)
[2019-04-19] MEDS: LEVOTHYROXINE SODIUM 0.025 MG TABLET PO SCH (06:24)
--- NOTE | 2019-04-19 06:45 | NUR ---
Closing note: Patient is resting in bed, no distress. IV fluids infusing as ordered. Tolerating room air. All needs met. Safety, fall precautions observed. Hourly rounding performed throughout shift. Will endorse care to dayshift RN.
--- NOTE | 2019-04-19 07:40 | NUR ---
ENDORSED TO AM RN TO VERIFY FROM DR. GUO WITH REGARDS TO TRANSFER TO [facility].
[2019-04-19 08:00] VITALS: BP_SYST 103
--- NOTE | 2019-04-19 08:02 | NUR ---
OPENING NOTE: RECEIVED REPORT FROM NOC RN. PATIENT RESTING IN BED WITH HOB ELEVATED. PATIENT IS AWAKE, ALERT AND CONFUSED. PATIENT IS ON ROOM AIR AND SATURATING AT 97% O2. PATIENT IS VERBALLY RESPONSIVE WITH CLEAR SPEECH. IV INTACT AND PATENT, NO REDNESS/SWELLING TO SITE. BED AT LOWEST POSITION, CALL LIGHT IN REACH, SIDE RAILX2. WILL CONTINUE TO MONITOR.
[2019-04-19] MEDS: LR 1,000 ML IV SCH (08:57)
[2019-04-19] MEDS: PANTOPRAZOLE SODIUM 40 MG/VIAL (PROTONIX) IVP SCH (08:57)
--- NOTE | 2019-04-19 10:30 | NUR ---
PSYCHIATRIST CONSULT: , PSYCHIATRIST, MAKES ROUND FOR THE CONSULT. HE STATES PATIENT IS CLEARED BY HIM FOR SNF.
--- NOTE | 2019-04-19 12:00 | NUR ---
ROUNDING: NO CHANGE IN STATUS. ALL NEEDS MET. CONTINUE TO MONITOR.
[2019-04-19 12:35] VITALS: BP_SYST 146
--- NOTE | 2019-04-19 15:30 | NUR ---
DC PLANNING: DC PLANNING TO SNF. CLINICAL PACKET HAS BEEN FAXED TO [facility] AND [facility]. PER CHARGE NURSE ZACHERY, PATIENT HAS BEEN EVALUATED BY DR. LIA (PSYCHIATRIST) AND PATIENT IS CLEARED TO BE DC TO SNF.
--- NOTE | 2019-04-19 16:31 | NUR ---
DC PLANNING/DC BARRIER: XUAN SPOKE WITH RANGEL (CLINICAL LIAISON @ [facility]). PATIENT IS ACCEPTED AND ROOM NUMBER IS [id number]. PATIENT'S GRANDDAUGHTER (MAXIMINO) @ WAS OK WITH [facility]. HOWEVER, DOES NOT WANT PATIENT TO BE DISCHARGE WITHOUT TALKING TO THE PSYCHIATRIST AND ATTENDING MD. XUAN CONTACTED CHARGE NURSE ZACHERY AND INFORMED HER OF THE SITUATION. PER CHARGE NURSE ZACHERY, SHE WILL CONTACT DR. MONTANA.
[2019-04-19 16:38] VITALS: BP_SYST 154
[2019-04-19] MEDS ORDERED: HALOPERIDOL LACTATE 5 MG/ML VIAL IM ONE (16:45)
[2019-04-19] MEDS: PEG 400/HYPROMELLOSE/GLYCERIN 15 ML DROPS OP SCH ×3 (17:00→21:00)
--- NOTE | 2019-04-19 17:00 | NUR ---
PATIENT PULLED OUT IV: PATIENT PULLED OUT IV, NO SIGNS OF ACTIVE BLEEDING. CHARGE NURSE ZACHERY, IS AWARE. DIRECTOR IS AWARE AND DR. MONTANA IS AWARE. PATIENT REFUSED TO LET ME TAKE OFF THE TAPE REMAINING AND REFUSED TO LET ME DRESSING SITE, NO ACTIVE BLEEDING NOTED. MST DIRECTOR AT BEDSIDE AND IS AWARE.
[2019-04-19] MEDS ORDERED: CEPHALEXIN 250 MG/5 ML, 100 ML BTL PO ONE (18:00)
[2019-04-19] MEDS: QUEtiapine FUMARATE 25 MG TABLET PO ONE ×2 (18:19→18:25)
--- NOTE | 2019-04-19 19:02 | NUR ---
CLOSING NOTE: PATIENT RESTING IN BED WITH HOB ELEVATED. PATIENT IS AWAKE, ALERT AND CONFUSED. PATIENT IS VERBALLY RESPONSIVE WITH CLEAR SPEECH. PATIENT IS ON ROOM AIR AND SATURATING WITHIN NORMAL LIMITS. BED AT LOWEST POSITION, CALL LIGHT IN REACH, SIDE RAILX3, BED AT LOWEST POSITION, PATIENT CLOSE TO NURSING STATION. WILL ENDORSE PLAN OF CARE TO NOC RN.
--- NOTE | 2019-04-19 20:00 | NUR ---
INITIAL NOTES: PATIENT IN BED DURING REPORT TIME. AWAKE NOT ANSWERING QUESTIONS.HITTING RNS HAND WHEN TOUCHING HER HANDS AND CHECKING IF INCONTINENT.NO IV LINE..KICKING FEET WHEN ASSESSED.ON SCD. BED IN LOW POSITION. CALL LIGHT WITHIN REACH.NOT IN DISTRESS. AGREED TO TAKE VITAL SIGNS.
[2019-04-19] MEDS ORDERED: DONEPEZIL HCL 5 MG TABLET (ARICEPT) PO SCH (21:00)
[2019-04-19] MEDS: QUEtiapine FUMARATE 25 MG TABLET PO SCH (21:00)
--- NOTE | 2019-04-19 21:00 | NUR ---
MEDS ADMIN: REFUSE TO TAKE PO MEDS. CONTINUE ATTEMPTING TO HIT RN HANDS.
--- NOTE | 2019-04-19 21:10 | NUR ---
HYGIENE: HAS URINE INCONTINENT. AZUL CARE AND POSITIONING DONE BY GERSON WOODS.
--- NOTE | 2019-04-19 23:00 | NUR ---
STILL AWAKE.KEEPS FOLDING CURTAIN.REFUSE TO LET IT PT. GRAB RN HAND AND HOLD SO TIGHT AND WONT LET IT GO.
--- NOTE | 2019-04-20 02:05 | NUR ---
PATIENT RESTING QUITELY. EYES CLOSE ,OPENS RIGHT AWAY WITH SOFT MOVEMENT/NOISE.
[2019-04-20] MEDS: PEG 400/HYPROMELLOSE/GLYCERIN 15 ML DROPS OP SCH ×3 (02:11→12:29)
--- NOTE | 2019-04-20 05:15 | NUR ---
HYGIENE: INCONTINENT OF LARGE URINE. HAD SMEAR OF LOOSE LIGHT BROWNISH STOOL .AZUL CARE AND CREAM APPLIED TO PERINEUIM.STILL NOT COOPERATING DURING CARE. NO VERBAL RESPONSE.
--- NOTE | 2019-04-20 05:40 | NUR ---
DR. GUO CALLED ,ASKED WHY IS SHE STILL HERE. UP DATED ON PATIENT CONDITION AND REASON S WHY.
[2019-04-20] MEDS: CEPHALEXIN 250 MG/5 ML, 100 ML BTL PO SCH ×3 (06:00→12:20)
--- NOTE | 2019-04-20 06:53 | NUR ---
CLOSING: ALL NEEDS WERE ATTENDED. CALM AND QUITE THIS AM. NO ACUTE CARDIOPULMONARY DISTRESS WHOLE SHIFT.CALL LIGHT WITHIN REACH. BED IN LOW POSITION.WILL ENDORSE CARE TO AM RN FOR CONTINUATION OF CARE.
[2019-04-20] MEDS: LEVOTHYROXINE SODIUM 0.025 MG TABLET PO SCH (07:00)
--- NOTE | 2019-04-20 07:00 | NUR ---
PATIENT HAS BEEN REFUSING PO MEDS AND IV REINSERTION.
--- NOTE | 2019-04-20 07:05 | NUR ---
GOT A MESSAGE FROM GROUND SUPPORT EQUIPMENT MECHANIC THIS AM FROM DR. GUO STATING HE CALLED CARLOS, PT. DAUGHTER #[phone], ABOUT TRANSFER ,SAID PATIENT CAN GO TO [facility].
--- NOTE | 2019-04-20 07:30 | NUR ---
RN OPENING NOTE Report was endorsed by night nurse. Patient is awake and alert laying in bed no signs of any distress, breathing is equal and non labored. Patient is confused, reoriented but is still confused. Patient has all safety precautions in place. Call light is with patient. Patient has no other needs at this time. will continue to monitor. Patient is close to nurses station.
[2019-04-20 08:19] VITALS: BP_SYST 127
--- NOTE | 2019-04-20 08:30 | NUR ---
INTAKE NURSE FROM [facility] SPOKE WITH YANELIS FROM [facility] STATES THEY HAVE A BED FOR PATIENT.HER CONTACT PHONE NUMBER IS . WILL SPEAK WITH CASE MANAGEMENT AND MD REGARDING ORDERS.
[2019-04-20] MEDS: PANTOPRAZOLE SODIUM 40 MG/VIAL (PROTONIX) IVP SCH (09:00)
[2019-04-20] MEDS: QUEtiapine FUMARATE 25 MG TABLET PO SCH (09:09)
--- NOTE | 2019-04-20 10:17 | NUR ---
Spoke with Dr. pedrito fishman to transfer to [facility] patient is medically cleared. Ok to change IV Protonix to PO. All other IV medication D/C. Will inform case management, and follow through with orders. Addendum: 04/20/19 at 1517 by Arlene Etienne RN Patient is sitting in bed no signs of any distress, breathing is equal and non labored. Patient has all safety precautions in place. Patient is close to nurses station. no other needs at this time. continue to monitor.
[2019-04-20 11:23] VITALS: BP_SYST 151
--- NOTE | 2019-04-20 12:06 | NUR ---
TRANSFER TO [facility]: Fatou MENON from [facility], [facility] unit has accepted pt to Room 32A with Dr. Stallworth as the admitting physician. RESTORATION TECHNICIAN informed Arlene MENON and was given accepting facility information. RESTORATION TECHNICIAN spoke with Dr. Hu who states pt can be discharged and can be transported via private vehicle but RESTORATION TECHNICIAN will give family other options for transport. RESTORATION TECHNICIAN spoke with deidra Elizabeth who will inform grand-dtr Meera of the plan; awaiting for a call back. Addendum: 04/20/19 at 1351 by Dana Rodriguez RESTORATION TECHNICIAN Pt is not on a 5150 hold and will be going to [facility] voluntarily. RESTORATION TECHNICIAN received a call back from Meera (grand daughter) who stated the family will be making transportation arrangements via private vehicle or dial-a-ride but family will be following patient to take the pt to [facility]. Viktoria SAWANT notified of DCP and transfer/dc packet provided. SS will remain available when needed.
--- NOTE | 2019-04-20 12:31 | NUR ---
Medication Addendum: 04/20/19 at 1403 by Arlene Etienne RN Patients scheduled medication given as ordered. Patient tolerated well. Patient is still confused tried to reorient back to reality but unable too. Patient has all safety precautions in place.Call light is with her. Patient is close to nurses station. no other needs at this time. will continue to monitor.
--- NOTE | 2019-04-20 14:04 | NUR ---
report given to Giulia at [facility]. no further questions .Daughter is on here way states transport will be here in 20 min.
[2019-04-20 14:11] VITALS: BP_SYST 151
--- NOTE | 2019-04-20 14:35 | NUR ---
transfer of care to [facility] Patient transferred VIA Private auto to [facility] for slef admittance. Transfer acknowledgment signed by granddaughter. Patients belongings sent with patient. copy of DPOA also given to patient and family. Packet was prepared by case management, and given to patients family. report was called in to franklin at [facility]. Patient has no IV site. Patients has no signs of any distress,breathing is equal and non labored. Patient wheeled out via wheel chair. no other needs
[2019-04-21] MEDS ORDERED: PANTOPRAZOLE SODIUM 40 MG TAB PO SCH (07:00)
== END 2019-04-20 12:30 | DRG 689 ==
LOC: SED 00:07 → STU 03:42 → SMU 04-17 17:26
PROVIDERS: ADMIT Internal Medicine; ATTEND Internal Medicine
DX: N39.0 Urinary tract infection, site not specified (principal); G93.41 Metabolic encephalopathy; I69.354 Hemiplegia and hemiparesis following cerebral infarction affecting left non-dominant side; E44.0 Moderate protein-calorie malnutrition; E03.9 Hypothyroidism, unspecified; E78.5 Hyperlipidemia, unspecified; I11.0 Hypertensive heart disease with heart failure; I50.9 Heart failure, unspecified; E86.0 Dehydration; F01.50 Vascular dementia, unspecified severity, without behavioral disturbance, psychotic disturbance, mood disturbance, and anxiety; J44.9 Chronic obstructive pulmonary disease, unspecified; R45.850 Homicidal ideations; Z79.01 Long term (current) use of anticoagulants; Z79.890 Hormone replacement therapy; Z86.718 Personal history of other venous thrombosis and embolism; Z87.440 Personal history of urinary (tract) infections; Z79.899 Other long term (current) drug therapy; Z99.3 Dependence on wheelchair
CPT/HCPCS: 36415; 36600; 70450-TC; 71045; 76770; 80053; 80307; 81000-TC; 82607; 82746; 82803-TC; 83605; 84439; 84443-TC; 84484; 85025; 85610-TC; 85730-TC; 87040-TC; 87086; 87186-TC; 93005; 93306; 96361; 96365; 96372; 97110-GP; 97530-GP; 99285; C9113; G0378; G0480; G0481; G0482; J0696; J1630; J1956; J2060; J3370; J7030; J7050; J7120